=== PATIENT | female | born 1960 | race African-American/Black ===

== ENCOUNTER → 2022-08-04 | Day surgery (SDC) | payer OTHER ==
[2022-07-30 17:29] VITALS: BMI 26.6
[~2022-08-04] MED LIST: LIDOCAINE HCL 4% TOPICAL SOLN (50 ML/BOTTLE) ONE; PROPOFOL 80 ML ONE
[2022-08-04 13:23] VITALS: PULSE 80; RESP 18
[2022-08-04 13:24] VITALS: BP 130/94; TEMP 98
== END | disposition home or self-care (01) ==
LOC: FASU-ENDO 10:12
PROVIDERS: ATTEND Internal Medicine Gastroenterology
PROC: 0DB68ZX Excision of Stomach, Via Natural or Artificial Opening Endoscopic, Diagnostic (ICD-10-PCS; 2022-08-04)
PROC: 0DB28ZX Excision of Middle Esophagus, Via Natural or Artificial Opening Endoscopic, Diagnostic (ICD-10-PCS; 2022-08-04)
PROC: 0DB48ZX Excision of Esophagogastric Junction, Via Natural or Artificial Opening Endoscopic, Diagnostic (ICD-10-PCS; 2022-08-04)
PROC: 0DB98ZX Excision of Duodenum, Via Natural or Artificial Opening Endoscopic, Diagnostic (ICD-10-PCS; principal; 2022-08-04 12:15)
DX: K29.50 Unspecified chronic gastritis without bleeding (principal); K44.9 Diaphragmatic hernia without obstruction or gangrene; K26.9 Duodenal ulcer, unspecified as acute or chronic, without hemorrhage or perforation; K21.00 Gastro-esophageal reflux disease with esophagitis, without bleeding; B96.81 Helicobacter pylori [H. pylori] as the cause of diseases classified elsewhere; R10.13 Epigastric pain
CPT/HCPCS: 88305-TC; 88342-TC